=== PATIENT | male | born 1985 | race Hispanic/Latino ===

== ENCOUNTER 2025-05-11 23:03 | Emergency (ER) | payer SELFPAY ==
[~2025-05-11] VITALS: Ht 180.3 cm; Wt 104.3 kg
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
--- NOTE | 2025-05-11 23:29 | NUR ---
PT CALLED, NO ANSWER
--- NOTE | 2025-05-11 23:32 | NUR ---
PT CALLED, NO ANSWER. NOT IN LOBBY OR MAIN ER
--- NOTE | 2025-05-11 23:33 | NUR ---
PT ROSEMARY. CALLED NO ANSWER. NO COMMUNICATION WITH STAFF ON DESIRE TO LEAVE.
--- NOTE | 2025-05-11 23:37 | NUR ---
PT IN LOBBY AT THIS TIME
[2025-05-12 00:01] VITALS: BP 160/93; PULSE 95; RESP 16; TEMP 98.2; O2SAT 98
== END 2025-05-12 00:02 | disposition home or self-care (01) ==
LOC: EDH 23:03
DX: T74.21XA Adult sexual abuse, confirmed, initial encounter (principal); Y08.89XA Assault by other specified means, initial encounter
CPT/HCPCS: 99282